=== PATIENT | female | born 1975 | race African-American/Black ===

== ENCOUNTER 2016-05-18 06:35 | Day surgery (SDC) | payer OTHER ==
[~2016-05-18] VITALS: Ht 160 cm; Wt 106.6 kg
[2016-05-18 07:02] VITALS: BP 105/70
[2016-05-18 09:15] VITALS: BP 106/74
== END 2016-05-18 09:30 | disposition home or self-care (01) ==
LOC: DS 06:35 → OR 08:30 → GI 08:30 → DS 09:30
PROVIDERS: Internal Medicine Gastroenterology
PROC: 0DB68ZX Excision of Stomach, Via Natural or Artificial Opening Endoscopic, Diagnostic (ICD-10-PCS; principal; 2016-05-18 08:30)
PROC: 0DJD8ZZ Inspection of Lower Intestinal Tract, Via Natural or Artificial Opening Endoscopic (ICD-10-PCS; 2016-05-18 08:30)
DX: K29.70 Gastritis, unspecified, without bleeding (principal); R19.7 Diarrhea, unspecified; Z68.41 Body mass index [BMI] 40.0-44.9, adult
CPT/HCPCS: 43235; 45378; J1200; J1610; J2250; J2310; J3010; J3490